=== PATIENT | female | born 1970 | race Caucasian/White ===

== ENCOUNTER → 2023-05-23 07:48 | Outpatient (REF) | payer OTHER, SELFPAY | LOC: RAD 07:48 | PROVIDERS: ATTENDING PHYSICIAN Internal Medicine Hematology & Oncology; FAMILY PHYSICIAN Family Medicine | DX: N83.291 Other ovarian cyst, right side (principal); N93.8 Other specified abnormal uterine and vaginal bleeding; C50.911 Malignant neoplasm of unspecified site of right female breast | CPT/HCPCS: 71260; 74177; 78306; A9503; Q9967 ==

== ENCOUNTER → 2023-09-03 14:51 | Outpatient (REF) | payer OTHER, SELFPAY | LOC: WDC 14:51 | PROVIDERS: ATTENDING PHYSICIAN Internal Medicine Hematology & Oncology; FAMILY PHYSICIAN Family Medicine | DX: N63.32 Unspecified lump in axillary tail of the left breast (principal) | CPT/HCPCS: 76642 ==

== ENCOUNTER → 2024-01-22 08:08 | Outpatient (REF) | payer OTHER, SELFPAY | LOC: HWRCS 08:08 | PROVIDERS: ATTENDING PHYSICIAN Internal Medicine Cardiovascular Disease; FAMILY PHYSICIAN Family Medicine | DX: Z85.3 Personal history of malignant neoplasm of breast (principal); T45.1X5D Adverse effect of antineoplastic and immunosuppressive drugs, subsequent encounter | CPT/HCPCS: 93306 ==

== ENCOUNTER → 2024-03-01 13:57 | Outpatient (REF) | payer OTHER, SELFPAY | LOC: WDC 13:57 | PROVIDERS: ATTENDING PHYSICIAN Internal Medicine Hematology & Oncology; FAMILY PHYSICIAN Family Medicine | DX: R92.8 Other abnormal and inconclusive findings on diagnostic imaging of breast (principal) | CPT/HCPCS: 76642 ==

== ENCOUNTER → 2024-05-20 07:23 | Outpatient (REF) | payer OTHER, SELFPAY | LOC: RAD 07:23 | PROVIDERS: ATTENDING PHYSICIAN Internal Medicine Hematology & Oncology; FAMILY PHYSICIAN Family Medicine | DX: N83.291 Other ovarian cyst, right side (principal); N93.8 Other specified abnormal uterine and vaginal bleeding; C50.911 Malignant neoplasm of unspecified site of right female breast | CPT/HCPCS: 71260; 74177; 78306; A9503; Q9967 ==

== ENCOUNTER → 2024-05-31 12:36 | Outpatient (REF) | payer OTHER, SELFPAY | LOC: PAVMRI 12:36 | PROVIDERS: ATTENDING PHYSICIAN Internal Medicine Hematology & Oncology; FAMILY PHYSICIAN Family Medicine | DX: C50.911 Malignant neoplasm of unspecified site of right female breast (principal); N93.8 Other specified abnormal uterine and vaginal bleeding; N83.291 Other ovarian cyst, right side | CPT/HCPCS: 72156; A9575 ==

== ENCOUNTER → 2024-06-03 09:03 | Outpatient (REF) | payer OTHER, SELFPAY | LOC: MRI 09:03 | PROVIDERS: ATTENDING PHYSICIAN Internal Medicine Hematology & Oncology; FAMILY PHYSICIAN Family Medicine | DX: C50.911 Malignant neoplasm of unspecified site of right female breast (principal); N93.8 Other specified abnormal uterine and vaginal bleeding; N83.291 Other ovarian cyst, right side | CPT/HCPCS: 72157; A9575 ==

== ENCOUNTER 2024-06-04 06:29 | Day surgery (SDC) | payer OTHER, SELFPAY ==
[2024-06-04 07:40] VITALS: BP 127/87
[2024-06-04] MEDS: NSS 1000 IV (07:45)
[2024-06-04 09:36] VITALS: BP 105/72; BP 127/87
[2024-06-04 09:45] VITALS: BP 112/73
--- NOTE | 2024-06-04 09:51 | W.IMMPOSTOP ---
Surgical Immed Post Op Note
-
Primary Surgeon: Nohemy
Assisting Surgeon: None
Pre-op Diagnosis: Right breast carcinoma, stage 4
Post-op Diagnosis: Right breast carcinoma, stage 4
Procedure Performed: Attempted left portacath insertion
Anesthesia Type: TIVA
Specimen / Cultures: None
Estimated Blood Loss: 10 cc
Complications: Inablility to place port
Operative Findings: None
--- NOTE | 2024-06-04 09:52 | OR.RPT ---
Operative Report
Operative Report
Date of surgery: 06/04/24
Pre-Op DX: Right breast ca stage 4
Post-op DX: Right breast ca stage 4
Procedure: Attempted left portacath insertion
Surgeon: Nohemy
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 She was now diagnosed with stage IV disease and presents for port
insertion.
The patient presented to same-day surgery services and verified site and procedure. She was prepped and DVT and antibiotic prophylaxis were provided. She was taken to the operating room. In Trendelenburg position with shoulder roll in place,
intravenous sedation was delivered. Left chest and neck were prepped and draped in the usual sterile fashion. An appropriate timeout procedure was performed by all staff members.
Tissues were anesthetized with 1% lidocaine plain. Via Seldinger technique, the left subclavian vein was attempted to be entered 3 times. This was successful, but on each attempt the guidewire would not turn into the vena cava. On one of the 3
punctures
an arterial flow pattern was noted and the needle was withdrawn and external compression was applied for 5 minutes.
Then an IJ approach was attempted. This was successful, however once again the guidewire would not turn to enter the vena cava therefore the procedure was not Vanden so that no harm was performed. Band-Aids were applied to the chest and neck area
and the patient was taken to the recovery room where stat portable chest x-ray will be obtained
[2024-06-04 10:00] VITALS: BP 132/89
[2024-06-04 10:15] VITALS: BP 125/83
[2024-06-04 10:45] VITALS: BP 141/84
== END 2024-06-04 10:50 | disposition home or self-care (01) ==
LOC: SDS 06:29
PROVIDERS: ATTENDING PHYSICIAN Surgery
DX: C79.51 Secondary malignant neoplasm of bone (principal); Z85.3 Personal history of malignant neoplasm of breast
CPT/HCPCS: 36561; 71045; 76000; C1788

== ENCOUNTER → 2024-06-08 09:21 | Outpatient (REF) | payer OTHER, SELFPAY ==
[2024-06-08 09:50] VITALS: BP 109/81; BP_SYST 61
[2024-06-08] MEDS: ANCEF 10 IV (10:20)
[2024-06-08 11:33] VITALS: BP 119/85
[2024-06-08 11:35] VITALS: BP 115/85
[2024-06-08 11:40] VITALS: BP 131/95
[2024-06-08 11:45] VITALS: BP 132/92
[2024-06-08 11:50] VITALS: BP 128/91
== END ==
LOC: RADI 09:21
PROVIDERS: ATTENDING PHYSICIAN Surgery; FAMILY PHYSICIAN Family Medicine
DX: C50.411 Malignant neoplasm of upper-outer quadrant of right female breast (principal)
CPT/HCPCS: 36561; 76937; 77001; 99152; 99153; C1788

== ENCOUNTER → 2024-06-10 09:28 | Outpatient (REF) | payer OTHER, SELFPAY ==
--- NOTE | 2024-06-10 09:41 | W.PN.UPDATE ---
Update Note
Progress Note Update
This is a 53 yo female who had an IR placed port on 06/08/24. She noticed there is an area of erythema along the incision and the area is tender. She denies fever or chills. She denies swelling or drainage
PE: The right chest wall has an incision that is CDI. The is mild erythema to the area. There is ecchymosis noted. There is no warmth, fluctuance or drainage. No signs of cellulitis or hematoma.
Assured patient this is normal wound healing and the port is ok to use.
== END ==
LOC: RADI 09:28
PROVIDERS: ATTENDING PHYSICIAN Physician Assistant; FAMILY PHYSICIAN Family Medicine
DX: Z45.2 Encounter for adjustment and management of vascular access device (principal)

== ENCOUNTER → 2024-09-15 10:11 | Outpatient (REF) | payer OTHER, SELFPAY | LOC: RAD 10:11 | PROVIDERS: ATTENDING PHYSICIAN Internal Medicine Hematology & Oncology; FAMILY PHYSICIAN Family Medicine | DX: N83.291 Other ovarian cyst, right side (principal); N93.8 Other specified abnormal uterine and vaginal bleeding; C50.911 Malignant neoplasm of unspecified site of right female breast; C79.51 Secondary malignant neoplasm of bone | CPT/HCPCS: 71260; 74177; 78306; A9503; Q9967 ==

== ENCOUNTER → 2024-12-06 06:33 | Outpatient (REF) | payer OTHER, SELFPAY ==
[2024-12-06 07:37] LABS: Hematocrit 34.6 % (37.0-47.0); Hemoglobin 12.1 g/dL (12.0-16.0); Mean Corp Hgb Conc. 35.0 g/dL (33.0-37.0); Mean Corpuscular Volume 99.7 fL (81.0-99.0); Nucleated Red Blood Cells % 0 %; Platelet Count 278 10^3/uL (130-400); Red Cell Dist. Width 11.8 % (11.5-14.5)
[2024-12-06 08:17] LABS: ALT (SGPT) 31 U/L (0-35); AST (SGOT) 24 U/L (14-36); Albumin 4.5 g/dl (3.5-5.0); Alkaline Phosphatase 81 U/L (38-126); Blood Urea Nitrogen 11 mg/dl (7-17); Calcium 9.5 mg/dl (8.4-10.2); Carbon Dioxide 24 mmol/L (22-30); Chloride 104 mmol/L (98-107); Glucose 83 mg/dl (70-99); Magnesium 1.9 mg/dl (1.6-2.3); Potassium 4.7 mmol/L (3.5-5.1); Sodium 137 mmol/L (135-145); Total Protein 7.0 g/dl (6.3-8.2); eGFR > 60.00
[2024-12-07 22:10] LABS: CA 27-29 33.7 U/mL (<=39.0)
== END ==
LOC: REG 06:33
PROVIDERS: ATTENDING PHYSICIAN Internal Medicine Hematology & Oncology; FAMILY PHYSICIAN Family Medicine
DX: N83.291 Other ovarian cyst, right side (principal); N93.8 Other specified abnormal uterine and vaginal bleeding; C50.911 Malignant neoplasm of unspecified site of right female breast; C79.51 Secondary malignant neoplasm of bone
CPT/HCPCS: 36415; 80053; 83735; 85025; 86300

== ENCOUNTER → 2025-01-03 06:40 | Outpatient (REF) | payer OTHER, SELFPAY ==
[2025-01-03 07:59] LABS: ALT (SGPT) 27 U/L (0-35); AST (SGOT) 21 U/L (14-36); Albumin 4.2 g/dl (3.5-5.0); Alkaline Phosphatase 66 U/L (38-126); Blood Urea Nitrogen 11 mg/dl (7-17); Calcium 9.4 mg/dl (8.4-10.2); Carbon Dioxide 26 mmol/L (22-30); Chloride 102 mmol/L (98-107); Glucose 87 mg/dl (70-99); Magnesium 2.0 mg/dl (1.6-2.3); Potassium 4.9 mmol/L (3.5-5.1); Sodium 133 mmol/L (135-145); Total Protein 6.7 g/dl (6.3-8.2); eGFR > 60.00
[2025-01-03 08:55] LABS: Hematocrit 32.9 % (37.0-47.0); Hemoglobin 11.7 g/dL (12.0-16.0); Mean Corp Hgb Conc. 35.6 g/dL (33.0-37.0); Mean Corpuscular Volume 95.1 fL (81.0-99.0); Nucleated Red Blood Cells % 0 %; Platelet Count 203 10^3/uL (130-400); Red Cell Dist. Width 11.2 % (11.5-14.5)
[2025-01-05 00:24] LABS: CA 27-29 38.2 U/mL (<=39.0)
== END ==
LOC: REG 06:40
PROVIDERS: ATTENDING PHYSICIAN Internal Medicine Hematology & Oncology; FAMILY PHYSICIAN Family Medicine
DX: N83.291 Other ovarian cyst, right side (principal); N93.8 Other specified abnormal uterine and vaginal bleeding; C50.911 Malignant neoplasm of unspecified site of right female breast; C79.51 Secondary malignant neoplasm of bone
CPT/HCPCS: 36415; 80053; 83735; 85025; 86300

== ENCOUNTER → 2025-01-10 07:18 | Outpatient (REF) | payer OTHER, SELFPAY ==
[2025-01-10 08:33] LABS: Hematocrit 33.9 % (37.0-47.0); Hemoglobin 11.9 g/dL (12.0-16.0); Mean Corp Hgb Conc. 35.1 g/dL (33.0-37.0); Mean Corpuscular Volume 94.7 fL (81.0-99.0); Platelet Count 248 10^3/uL (130-400); Red Cell Dist. Width 11.6 % (11.5-14.5)
[2025-01-10 08:51] LABS: ALT (SGPT) 23 U/L (0-35); AST (SGOT) 22 U/L (14-36); Albumin 4.6 g/dl (3.5-5.0); Alkaline Phosphatase 145 U/L (38-126); Blood Urea Nitrogen 13 mg/dl (7-17); Calcium 8.8 mg/dl (8.4-10.2); Carbon Dioxide 22 mmol/L (22-30); Chloride 102 mmol/L (98-107); Glucose 82 mg/dl (70-99); Magnesium 2.1 mg/dl (1.6-2.3); Potassium 4.3 mmol/L (3.5-5.1); Sodium 133 mmol/L (135-145); Total Protein 7.1 g/dl (6.3-8.2); eGFR > 60.00
[2025-01-10 09:01] LABS: Nucleated Red Blood Cells % 0 %
[2025-01-12 05:20] LABS: CA 27-29 33.5 U/mL (<=39.0)
== END ==
LOC: REG 07:18
PROVIDERS: ATTENDING PHYSICIAN Internal Medicine Hematology & Oncology; FAMILY PHYSICIAN Family Medicine
DX: N83.291 Other ovarian cyst, right side (principal); N93.8 Other specified abnormal uterine and vaginal bleeding; C50.911 Malignant neoplasm of unspecified site of right female breast; C79.51 Secondary malignant neoplasm of bone
CPT/HCPCS: 36415; 80053; 83735; 85025; 86300

== ENCOUNTER → 2025-01-31 06:36 | Outpatient (REF) | payer OTHER, SELFPAY ==
[2025-01-31 08:25] LABS: Hematocrit 34.4 % (37.0-47.0); Hemoglobin 11.3 g/dL (12.0-16.0); Mean Corp Hgb Conc. 32.8 g/dL (33.0-37.0); Mean Corpuscular Volume 96.4 fL (81.0-99.0); Platelet Count 191 10^3/uL (130-400); Red Cell Dist. Width 12.1 % (11.5-14.5)
[2025-01-31 09:00] LABS: ALT (SGPT) 24 U/L (0-35); AST (SGOT) 19 U/L (14-36); Albumin 4.3 g/dl (3.5-5.0); Alkaline Phosphatase 124 U/L (38-126); Blood Urea Nitrogen 7 mg/dl (7-17); Calcium 8.7 mg/dl (8.4-10.2); Carbon Dioxide 25 mmol/L (22-30); Chloride 105 mmol/L (98-107); Glucose 86 mg/dl (70-99); Magnesium 2.0 mg/dl (1.6-2.3); Potassium 4.4 mmol/L (3.5-5.1); Sodium 137 mmol/L (135-145); Total Protein 6.9 g/dl (6.3-8.2); eGFR > 60.00
[2025-01-31 09:48] LABS: Nucleated Red Blood Cells % 0 %
[2025-02-01 19:11] LABS: CA 27-29 30.3 U/mL (<=39.0)
== END ==
LOC: REG 06:36
PROVIDERS: ATTENDING PHYSICIAN Internal Medicine Hematology & Oncology; FAMILY PHYSICIAN Family Medicine
DX: N83.291 Other ovarian cyst, right side (principal); N93.8 Other specified abnormal uterine and vaginal bleeding; C50.911 Malignant neoplasm of unspecified site of right female breast; C79.51 Secondary malignant neoplasm of bone
CPT/HCPCS: 36415; 80053; 83735; 85025; 86300

== ENCOUNTER → 2025-02-28 06:36 | Outpatient (REF) | payer BC, SELFPAY ==
[2025-02-28 08:00] LABS: Hematocrit 38.9 % (37.0-47.0); Hemoglobin 13.6 g/dL (12.0-16.0); Mean Corp Hgb Conc. 35.0 g/dL (33.0-37.0); Mean Corpuscular Volume 90.7 fL (81.0-99.0); Nucleated Red Blood Cells % 0 %; Platelet Count 231 10^3/uL (130-400); Red Cell Dist. Width 12.1 % (11.5-14.5)
[2025-02-28 10:59] LABS: Vitamin D, 25-OH*** 37.3 ng/mL (30-80)
[2025-02-28 11:10] LABS: ALT (SGPT) 29 U/L (0-35); AST (SGOT) 25 U/L (14-36); Albumin 4.8 g/dl (3.5-5.0); Alkaline Phosphatase 64 U/L (38-126); Blood Urea Nitrogen 11 mg/dl (7-17); Calcium 9.1 mg/dl (8.4-10.2); Carbon Dioxide 26 mmol/L (22-30); Chloride 98 mmol/L (98-107); Glucose 84 mg/dl (70-99); Magnesium 2.0 mg/dl (1.6-2.3); Potassium 4.6 mmol/L (3.5-5.1); Sodium 132 mmol/L (135-145); Total Protein 7.4 g/dl (6.3-8.2); eGFR > 60.00
[2025-03-02 02:51] LABS: CA 27-29 24.5 U/mL (<=39.0)
== END ==
LOC: REG 06:36
PROVIDERS: ATTENDING PHYSICIAN Internal Medicine Hematology & Oncology; FAMILY PHYSICIAN Family Medicine
DX: N83.291 Other ovarian cyst, right side (principal); N93.8 Other specified abnormal uterine and vaginal bleeding; C50.911 Malignant neoplasm of unspecified site of right female breast; C79.51 Secondary malignant neoplasm of bone
CPT/HCPCS: 36415; 80053; 82306; 83735; 85025; 86300

== ENCOUNTER → 2025-03-07 06:47 | Outpatient (REF) | payer BC, SELFPAY ==
[2025-03-07 07:56] LABS: ALT (SGPT) 28 U/L (0-35); AST (SGOT) 22 U/L (14-36); Albumin 4.6 g/dl (3.5-5.0); Alkaline Phosphatase 55 U/L (38-126); Blood Urea Nitrogen 17 mg/dl (7-17); Calcium 9.4 mg/dl (8.4-10.2); Carbon Dioxide 28 mmol/L (22-30); Chloride 99 mmol/L (98-107); Glucose 87 mg/dl (70-99); Magnesium 1.9 mg/dl (1.6-2.3); Potassium 4.3 mmol/L (3.5-5.1); Sodium 134 mmol/L (135-145); Total Protein 7.3 g/dl (6.3-8.2); eGFR > 60.00
[2025-03-07 08:01] LABS: Hematocrit 36.6 % (37.0-47.0); Hemoglobin 12.9 g/dL (12.0-16.0); Mean Corp Hgb Conc. 35.2 g/dL (33.0-37.0); Mean Corpuscular Volume 91.3 fL (81.0-99.0); Nucleated Red Blood Cells % 0 %; Platelet Count 155 10^3/uL (130-400); Red Cell Dist. Width 11.5 % (11.5-14.5)
== END ==
LOC: REG 06:47
PROVIDERS: ATTENDING PHYSICIAN Internal Medicine Hematology & Oncology; FAMILY PHYSICIAN Family Medicine
DX: N83.291 Other ovarian cyst, right side (principal); N93.8 Other specified abnormal uterine and vaginal bleeding; C50.911 Malignant neoplasm of unspecified site of right female breast; C79.51 Secondary malignant neoplasm of bone
CPT/HCPCS: 36415; 80053; 83735; 85025